=== PATIENT | female | born 1985 | race Caucasian/White ===

== ENCOUNTER 2016-09-08 01:27 | Inpatient (IN) | payer SELFPAY ==
[~2016-09-08] VITALS: Ht 165.1 cm; Wt 61.4 kg
[~2016-09-08 01:27] MED LIST: ACIDOPHILUS LAC1 CAP PO; BENTYL 20 MG TA20 MG PO; FLAGYL500 MG PO; LOMOTIL TABLET1 TAB PO; LOTRONEX0.5 MG PO; NORCO 10/325 TA1 TA1 PO; PEPCID20 MG PO; PERCOCET 10/3251 TA1 PO; PHENERGAN25 M1 PO; QUESTRAN PACK4 G/PKT PO; TYLENOL 8 HOUR650 MG PO; VANCOMYCIN250 MG/51 PO; ZOFRAN4 MG PO
[2016-09-08 02:01] LABS: BASOPHILS 0.1 % (0.0-2.0); EOSINOPHILS 0.3 % (0-7); HEMATOCRIT 36.7 % (36.0-48.0); HEMOGLOBIN 12.4 g/dL (12-16); IMMATURE GRANULOCYTES 0.3 % (0-5); LYMPHOCYTES 2.6 % (15-50); MCH 28.3 pg (26.0-34.0); MCHC 33.8 g/dL (31.0-37.0); MCV 83.8 fL (80.0-100.0); MEAN PLATELET VOLUME 10.5 fL (7.4-10.4); MONOCYTES 2.5 % (2-11); NEUTROPHILS 94.2 % (40-80); PLATELET COUNT 173 10x3/uL (130-400); RBC 4.38 10x6/uL (4.00-5.40); WBC 18.6 10x3/uL (4.8-10.8)
[2016-09-08 02:07] LABS: ALBUMIN 4.1 g/dL (3.4-5.0); ALKALINE PHOSPHATASE 48 U/L (46-116); ALT (SGPT) 21 U/L (10-68); BILIRUBIN - TOTAL 0.61 mg/dL (0.2-1.3); CALC OSMOLALITY 281 mosm/kg (275-300); CARBON DIOXIDE 26.2 mmol/L (21.0-32.0); CHLORIDE - SERUM 106 mmol/L (98-107); CREATININE - SERUM 0.9 mg/dL (0.6-1.3); GLUCOSE 98 mg/dL (74-106); POTASSIUM - SERUM 3.2 mmol/L (3.5-5.1); PROTEIN - SERUM 7.8 g/dL (6.4-8.2); SODIUM 142 mmol/L (136-145); UREA NITROGEN 9 mg/dL (7-18); eGFR NON AFRICAN AMERICAN 79 mL/min (90-120)
[2016-09-08 04:22] LABS: APPEARANCE CLEAR (CLEAR); COLOR YELLOW (YELLOW)
[2016-09-08 04:23] LABS: BILIRUBIN NEGATIVE (NEGATIVE); GLUCOSE NEGATIVE (NEGATIVE); KETONE NEGATIVE (NEGATIVE); LEUKOCYTE ESTERASE NEGATIVE (NEGATIVE); NITRITE NEGATIVE (NEGATIVE); PROTEIN NEGATIVE (NEGATIVE); UROBILINOGEN NORMAL (NORMAL)
[2016-09-08 04:44] LABS: HCG URINE NEGATIVE (NEGATIVE)
[2016-09-08] MEDS ORDERED: FERROUS SULFAT325 MG PO (09:17)
--- NOTE | 2016-09-08 09:20 | NUR ---
RECIEVED PATIENT VIA WHEELCHAIR WITH NURSE FROM ER. PATIENT'S MOM AND PRESENT. EXPLAINED DROPLET ISOLATION PRECAUTIONS TO PATIENT AND PATIENT'S FAMILY. ALL VERBALIZED UNDERSTANDING AND DENIES QUESTIONS.
[2016-09-08 11:13] VITALS: BP 102/70; Ht 165.1 cm; Wt 61.4 kg
[2016-09-08 13:06] VITALS: BP 105/74
--- NOTE | 2016-09-08 13:06 | NUR ---
Patient Name: GLADYS DANIELLE Admission Status: ER Accout number: [id number] Admission Date: 09-08-2016 : 1985 Admission Diagnosis: Attending: ISAIAH Current LOS: 1 Anticipated DC Date: 09-10-2016 Planned Disposition: Home or Self Care Primary Insurance: UNINSURED DISCOUNT PLAN Discharge Planning Comments: CM MET WITH PATIENT REGARDING D/C NEEDS AND PLANS. PATIENT STATED HER SPOUSE WILL PICK HER UP AT DISCHARGE. PATIENT STATED THEY HAVE 5 STEPS W/RAILS TO ENTER HOME AND NO STAIRS INSIDE. PATIENTS IS INDEPENDENT WITH HER CARE AND HAS NO DME. PATIENTS PCP IS DR. BARRAZA AND PHARMACY IS [facility]. PATIENT HAS NEVER HAD HOME HEALTH AND DOES NOT WANT IT. CM WILL CONTINUE TO FOLLOW PATIENT WITH D/C NEEDS AND PLANS. PCP DR. CHRISTI HAMMER [facility]- [phone] CHARITY (SPOUSE) [phone] Riding Double: Jenifer Bejarano Is the patient Alert and Oriented? Yes 0 * How many steps to enter\exit or inside your home? 5 W/RAILS 0 * PCP DR. BARRAZA 0 * Pharmacy [facility] [address] * Preadmission Environment Home with Family 0 * ADLs Independent 0 * Equipment None 0 * List name and contact numbers for known caregivers / representatives who currently or will assist patient after discharge: CHARITY (SPOUSE) [phone] 0 * Community resources currently utilized None 0 * Additional services required to return to the preadmission environment? Yes 0 * Can the patient safely return to the preadmission environment? Yes 0 * Has this patient been hospitalized within the prior 30 days at any hospital? No 0 Grand Total: 0
--- NOTE | 2016-09-08 14:08 | NUR ---
SCDS APPLIED TO BILATERAL LEGS
[2016-09-08 17:18] VITALS: BP 101/66
--- NOTE | 2016-09-08 19:25 | NUR ---
RECIEVED SHIFT REPORT. PT IS LYING IN BED. ALERT AND ORIENTED AND ABLE TO VERBALIZE NEEDS. IV IS PATENT AND FLUIDS ARE RUNNING PER ORDER. PT IS AMBULATORY BUT WAS INSTRUCTED TO CALL FOR ANY ASSISTANCE NEEDED. SCD'S ON. PT STATES PAIN IS 5/10. ISOLATION PRECAUTIONS IN PLACE. NO NEEDS ARE VERBALIZED AT THIS TIME. WILL CONTINUE TO MONITOR. SIDE RAILS ARE UP X 2. BED IS IN LOWEST POSITION. CALL LIGHT IS WITHIN REACH.
--- NOTE | 2016-09-08 20:51 | NUR ---
SHIFT ASSESSMENT COMPLETED. NIGHT MEDS GIVEN WITH NO PROBLEMS. NO NEEDS ARE VOICED. WILL MONITOR. SIDE RAILS X 2. BED LOW. CALL LIGHT IN REACH.
[2016-09-08 21:00] VITALS: BP 98/59
--- NOTE | 2016-09-08 22:54 | NUR ---
PT C/O PAIN 03/08. ADMINISTERED PRESCRIBED PRN NORCO PER ORDER. DENIES FURTHER NEEDS. WILL MONITOR. SIDE RAILS X 2. BED LOW. CALL LIGHT IN REACH.
[2016-09-09 01:00] VITALS: BP 98/55
[2016-09-09 05:00] VITALS: BP 107/63
[2016-09-09 06:05] LABS: BASOPHILS 0.1 % (0.0-2.0); EOSINOPHILS 1.3 % (0-7); IMMATURE GRANULOCYTES 0.2 % (0-5); MCH 27.8 pg (26.0-34.0); MCHC 32.5 g/dL (31.0-37.0); MCV 85.4 fL (80.0-100.0); MONOCYTES 3.7 % (2-11); NEUTROPHILS 81.7 % (40-80); PLATELET COUNT 151 10x3/uL (130-400); RDW 13.7 % (11.5-14.5); WBC 15.2 10x3/uL (4.8-10.8)
[2016-09-09 06:20] LABS: HEMATOCRIT 28.6 % (36.0-48.0); HEMOGLOBIN 9.3 g/dL (12-16); RBC 3.35 10x6/uL (4.00-5.40)
[2016-09-09 07:00] LABS: CALCIUM 7.8 mg/dL (8.5-10.1); CARBON DIOXIDE 24.1 mmol/L (21.0-32.0); CHLORIDE - SERUM 111 mmol/L (98-107); GLUCOSE 89 mg/dL (74-106); MAGNESIUM - SERUM 1.7 mg/dL (1.8-2.4); PHOSPHOROUS 3.1 mg/dL (2.5-4.9); POTASSIUM - SERUM 3.5 mmol/L (3.5-5.1); SODIUM 142 mmol/L (136-145)
[2016-09-09 07:05] LABS: CALC OSMOLALITY 278 mosm/kg (275-300); CREATININE - SERUM 0.6 mg/dL (0.6-1.3); UREA NITROGEN 5 mg/dL (7-18); eGFR NON AFRICAN AMERICAN > 90 mL/min (90-120)
[2016-09-09 08:47] VITALS: BP 109/68
[2016-09-09 12:30] VITALS: BP 120/69
--- NOTE | 2016-09-09 15:23 | NUR ---
PATIENT OUT OF SHOWER. IV SITE TO LEFT FOREARM RED AND SWOLLEN. D/C IV WITH CATH INTACT. IV STARTED TO RIGHT FOREARM 20G, X'S 2 ATTEMPTS.
[2016-09-09 17:29] VITALS: BP 115/78
[2016-09-09 21:00] VITALS: BP 116/66
--- NOTE | 2016-09-09 21:00 | NUR ---
REPORT RECEIVED AND CARE ASSUMED. LYING IN BED RESTING. NO DISTRESS NOTED. SHIFT ASSESSMENT COMPLETED. NO VOICED NEEDS. SR X 2, BED LOW, CALL LIGHT IN EASY REACH.
[2016-09-10 01:00] VITALS: BP 105/64
[2016-09-10 05:20] VITALS: BP 113/69
[2016-09-10 05:27] LABS: BASOPHILS 0.2 % (0.0-2.0); EOSINOPHILS 2.4 % (0-7); HEMATOCRIT 28.1 % (36.0-48.0); HEMOGLOBIN 9.3 g/dL (12-16); IMMATURE GRANULOCYTES 0.1 % (0-5); MCH 28.1 pg (26.0-34.0); MCHC 33.1 g/dL (31.0-37.0); MCV 84.9 fL (80.0-100.0); MEAN PLATELET VOLUME 11.1 fL (7.4-10.4); MONOCYTES 4.2 % (2-11); NEUTROPHILS 78.1 % (40-80); RBC 3.31 10x6/uL (4.00-5.40); RDW 13.6 % (11.5-14.5)
[2016-09-10 05:48] LABS: PLATELET COUNT 182 10x3/uL (130-400); WBC 10.7 10x3/uL (4.8-10.8)
[2016-09-10 05:57] LABS: CALC OSMOLALITY 275 mosm/kg (275-300); CALCIUM 7.5 mg/dL (8.5-10.1); CARBON DIOXIDE 23.1 mmol/L (21.0-32.0); CHLORIDE - SERUM 109 mmol/L (98-107); CREATININE - SERUM 0.6 mg/dL (0.6-1.3); GLUCOSE 95 mg/dL (74-106); MAGNESIUM - SERUM 1.9 mg/dL (1.8-2.4); POTASSIUM - SERUM 3.7 mmol/L (3.5-5.1); SODIUM 140 mmol/L (136-145); eGFR NON AFRICAN AMERICAN > 90 mL/min (90-120)
[2016-09-10 06:00] LABS: UREA NITROGEN 3 mg/dL (7-18)
--- NOTE | 2016-09-10 08:49 | NUR ---
AWAKE AND ALERT. ORIENTED X3. NO C/O THIS AM. STOOL SPECIMEN SENT TO LAB. LUNGS ARE DIMINISHED THROUGHOUT LUNG FOSS, PRODUCTIVE COUGH NOTED. SKIN IS INTACT WITHOUT REDNESS. IV TO RIGHT FOREARM PATENT WITHOUT REDNESS AT INSERTION SITE. DENIES NEEDS.
[2016-09-10 09:08] VITALS: BP 107/61
--- NOTE | 2016-09-10 10:33 | NUR ---
RESTING QUIETLY IN BED. DENIES NEEDS.
--- NOTE | 2016-09-10 10:39 | NUR ---
NUTRITION MONITORING & EVAL PT REMAINS IN ISOLATION. REG DIET WITH 25% INTAKE BREAKFAST. WILL CONTINUE TO PROVIDE DIET, MONITOR PO INTAKE. RD FOLLOWING
[2016-09-10 12:30] VITALS: BP 106/63
--- NOTE | 2016-09-10 12:30 | NUR ---
ATE ALL OF LUNCH TRAY ORDERED. DENIES NEEDS.
--- NOTE | 2016-09-10 14:30 | NUR ---
RESTING IN BED. WAS UP TO BR PER SELF. DENIES NEEDS.
[2016-09-10 16:19] VITALS: BP 114/69
--- NOTE | 2016-09-10 18:06 | NUR ---
REPORTS SHE ATE MOST OF SUPPER TRAY. UP IN SHOWER AT THIS TIME. NO CHANGES NOTED.
[2016-09-10 21:00] VITALS: BP 125/84
[2016-09-11 01:00] VITALS: BP 120/80
[2016-09-11 05:00] VITALS: BP 109/66
[2016-09-11 06:06] LABS: BASOPHILS 0.3 % (0.0-2.0); EOSINOPHILS 4.2 % (0-7); HEMATOCRIT 28.8 % (36.0-48.0); HEMOGLOBIN 9.5 g/dL (12-16); IMMATURE GRANULOCYTES 0.5 % (0-5); LYMPHOCYTES 28.3 % (15-50); MCH 28.3 pg (26.0-34.0); MCV 85.7 fL (80.0-100.0); MEAN PLATELET VOLUME 10.9 fL (7.4-10.4); MONOCYTES 4.4 % (2-11); NEUTROPHILS 62.3 % (40-80); PLATELET COUNT 184 10x3/uL (130-400); RBC 3.36 10x6/uL (4.00-5.40); RDW 13.3 % (11.5-14.5)
[2016-09-11 06:12] LABS: WBC 6.2 10x3/uL (4.8-10.8)
[2016-09-11 06:31] LABS: CALC OSMOLALITY 275 mosm/kg (275-300); CALCIUM 7.8 mg/dL (8.5-10.1); CARBON DIOXIDE 21.5 mmol/L (21.0-32.0); CHLORIDE - SERUM 110 mmol/L (98-107); CREATININE - SERUM 0.6 mg/dL (0.6-1.3); GLUCOSE 99 mg/dL (74-106); POTASSIUM - SERUM 3.9 mmol/L (3.5-5.1); SODIUM 140 mmol/L (136-145); eGFR NON AFRICAN AMERICAN > 90 mL/min (90-120)
[2016-09-11 06:37] LABS: UREA NITROGEN 4 mg/dL (7-18)
--- NOTE | 2016-09-11 07:00 | NUR ---
REPORT RECIEVED. ASSUMED CARE. PATIENT IN BED WITH IV INTACT. NO COMPLAINTS AT THIS TIME. CALL LIGHT WITHIN REACH.
[2016-09-11 08:38] VITALS: BP 109/67
[2016-09-11] MEDS ORDERED: ZITHROMAX500 MG PO (09:24)
[2016-09-11] MEDS ORDERED: OMNICEF300 MG PO (09:25)
[2016-09-11] MEDS ORDERED: ROBITUSSIN DM 110 ML PO (09:28)
[2016-09-11] MEDS ORDERED: PROBIOTIC1 EAC1 PO (09:28)
[2016-09-11] MEDS ORDERED: OMEPRAZOLE20 M1 PO (09:32)
--- NOTE | 2016-09-11 11:34 | NUR ---
PATIENT RECIEVED DISCHARGE INSTRUCTIONS. VERBALIZED UNDERSTANDING. PRESCRIPTIONS GIVEN TO PATIENT. NO QUESTIONS AT THIS TIME. AWAITING FOR TRANSPORTATION.
== END 2016-09-11 13:55 | disposition home or self-care (01) | DRG 195 ==
LOC: D.ER 01:27 → D.MS 06:44
PROVIDERS: Emergency Medicine; ADMIT Family Medicine
DX: J18.9 Pneumonia, unspecified organism (principal); E87.6 Hypokalemia; K29.70 Gastritis, unspecified, without bleeding; D64.9 Anemia, unspecified; E83.42 Hypomagnesemia

== ENCOUNTER → 2020-11-01 18:29 | Outpatient (CLI) | payer OTHER ==
[2016-09-08 11:13] VITALS: BMI 22.5
[~2020-11-01 18:29] MED LIST changes: +FERROUS SULFAT325 MG PO; +OMEPRAZOLE20 M1 PO; +OMNICEF300 MG PO; +PROBIOTIC1 EAC1 PO; +ROBITUSSIN DM 110 ML PO; +ZITHROMAX500 MG PO
== END | disposition home or self-care (01) ==
LOC: D.LABREF 18:29
PROVIDERS: ATTEND Internal Medicine Cardiovascular Disease
DX: Z51.81 Encounter for therapeutic drug level monitoring (principal)